=== PATIENT | female | born 1960 | race Caucasian/White ===

== ENCOUNTER → 2017-05-14 | Outpatient (CLI) | payer OTHER ==
[~2017-05-14] MED LIST: AMIT10TA6 PO; AMIT25TA9 PO; ASPI-516 CHEW; ASPI81TA17 PO; ATEN100T PO; GABA300C5 PO; HYDR25TA5 PO; LOSA100T PO; MELO7.5T27 PO; PRAV20TA2 PO; TRAM50TA PO; TURM500C7; ZOLP5TAB3 PO
== END ==
LOC: CPRE 12:52
PROVIDERS: ATTEND Neurological Surgery
DX: Z01.812 Encounter for preprocedural laboratory examination (principal); M43.16 Spondylolisthesis, lumbar region; M48.062 Spinal stenosis, lumbar region with neurogenic claudication
CPT/HCPCS: 87640; 87641

== ENCOUNTER 2017-05-21 06:04 | Inpatient (IN) | payer OTHER ==
--- NOTE | 2017-05-20 23:04 | MH ---
cc: ELSI VALDEZ M.D., ROHIT K. M.D. DATE OF ADMISSION: 05/21/2017 ADMITTING DIAGNOSIS: Lumbar degenerative disk disease. HISTORY OF PRESENT ILLNESS This is a 57-year-old female who presented to us for evaluation of posterior right thigh pain that started in the summer of 2015 and low back pain. She states that she saw her primary care physician and felt that she had piriformis syndrome and recommended exercises. She states that she got worse and switched primary care physician's and the new primary care physician recommended physical therapy. She was referred to physical therapy. She started doing exercises but this exacerbated her pain and her physical therapist recommended that she follow up with her primary care physician, who felt that she had more than just piriformis syndrome. Her primary care physician at the time ordered an MRI to further evaluate her complaints. She was referred to neurosurgery for further evaluation. She has intermittent numbness in the right leg in the same distribution as the pain. She gets cramps at night in her lower extremities. She states that she is starting to have left hip pain and a similar type of pain in the left leg. She has chronic low back pain. She denies any weakness in the lower extremities. She states when she is sitting or laying down the pain is 0/10. When she is more active during the day her pain reaches 7/10. She states her pain is typically progressive and gets worse during the day. PAST MEDICAL HISTORY: 1. Hypertension. 2. Hyperlipidemia. 3. Tonsillectomy in 1956. 4. Uterine surgery in 1996. 5. Left ovary removed in 1997. FAMILY HISTORY: Father is at 74 years old, had a history of diabetes and heart disease. He had a heart attack. Mother at 75 years old, had hypertension. Brother is alive at 61 years old, has hypertension. Sister is alive at 62 years old, has hypertension. SOCIAL HISTORY: She cleans houses. She is . She has one child. She lives alone. She does not smoke and quit in September of 2014. She drinks 2-3 drinks of alcohol per year. CURRENT MEDICATIONS: 1. Tumeric 500 mg daily. 2. Aspirin 81 milligrams p.o. daily. This was placed on hold prior to surgical intervention. 3. Zolpidem 5 milligrams p.o. q hs. 4. Amitriptyline 25 milligrams p.o. q hs. 5. Losartan 100 milligrams p.o. daily 6. Pravastatin 20 milligrams p.o. daily. 7. Gabapentin 300 milligrams p.o. b.i.d. 8. Meloxicam 7.5 milligrams p.o. daily. This was placed on hold prior to surgical intervention. 9. Tramadol 50 milligrams p.o. q8 hours p.r.n. pain 10. Hydrochlorothiazide 25 milligrams p.o. daily. 11. Atenolol 100 milligrams p.o. daily ALLERGIES PENICILLIN. REVIEW OF SYSTEMS Constitutional: She denies any fever or chills. EARS, NOSE, AND THROAT: No pharyngitis, exudate or blood draining from her nose. CARDIOVASCULAR: She denies any chest pain or palpitations. RESPIRATORY: No cough or shortness of breath. GENITOURINARY: No dysuria or hematuria. MUSCULOSKELETAL: Positive for low back pain. SKIN: No rash or pruritus. NEUROLOGIC: No difficulty with speech or memory. GASTROINTESTINAL: No nausea, vomiting, positive for abdominal pain. PSYCHIATRIC: No anxiety or depression symptoms. ENDOCRINE: Positive for polyuria, no polydipsia. HEMATOLOGIC: No bruising or bleeding tendencies. PHYSICAL EXAMINATION: Head: Normocephalic, atraumatic. Neck: Supple. No carotid bruits heard on auscultation. Lungs: Clear to auscultation bilaterally. Heart: Regular rate and rhythm, normal S1-S2. Abdomen: Soft, nontender. Positive bowel sounds. Skin: Reveals no cyanosis or erythema. Musculoskeletal: She has 5/5 strength in lower extremities. She ambulates without any assistive device. Neurologic: She is awake, alert, oriented. Cranial nerves II-XII grossly intact. Speech is fluent. Comprehension is good. DATA REVIEW MRI of the lumbar spine from March 06, 2017 reveals a grade 1/2, L4-L5 spondylolisthesis with disk protrusion and facet hypertrophy with associated significant spinal stenosis. There is also degenerative disk disease to moderate L5-S1 with disk protrusion eccentric to the left side and endplate changes. She has mild L2-L3, L3-L4 central disk protrusion along with disk degeneration. PLAN We have discussed treatment options with the patient which include continued conservative measures with physical therapy and pain management versus surgical intervention. The patient and her daughter are requesting that we proceed with surgical intervention. We have discussed a L4-L5 transforaminal decompression with interbody fusion. We have discussed the procedure using spine models in the office. We have discussed the risks involved with surgery to include but not limited to bleeding, infection, muscle weakness, voice hoarseness, difficulty swallowing, heart attack, stroke, blood clots, non fusion, scar tissue formation among others. The patient states that she understands the procedure as well as the risks involved and she is requesting that we proceed. She is therefore scheduled accordingly. Dictated by: Elfego Washburn PA-C MD QUYEN Raya/LOUISE /10:26 PM /10:47 PM
[~2017-05-21] VITALS: Ht 170.2 cm; Wt 83.0 kg
[~2017-05-21 06:04] MED LIST changes: -AMIT25TA9 PO; -ASPI-516 CHEW
[2017-05-21] MEDS: SODIUM CHLOR 0.9% 1000 ML INJ 1,000 ML IV SCH ×2 (06:45→20:45)
[2017-05-21] MEDS ORDERED: VANCOMYCIN 1000 MG/NS 250 ML ON-CALL IV SCH ×2 (06:45)
[2017-05-21] MEDS ORDERED: METOPROLOL TARTRATE 25 MG TAB PO PRN (07:00)
[2017-05-21] MEDS ORDERED: POVIDONE IODINE 5% (ANTISEPSIS KIT) 4 APPLICATIONS EACH NARE PRN (07:00)
[2017-05-21] MEDS ORDERED: CHLORHEXIDINE GLUCONATE 2 % 1 PACK (2 CLOTHS) TOPICAL PRN (07:00)
[2017-05-21] MEDS ORDERED: SODIUM CHLORID 0.9% 500 ML IV PRN (07:00)
[2017-05-21] MEDS ORDERED: LACTATED RINGER'S 1000 ML IV PRN (07:00)
[2017-05-21] MEDS ORDERED: INSULIN HUMAN REGULAR 1,000 UNITS/10 ML VIAL SQ PRN (07:00)
[2017-05-21] MEDS ORDERED: VANCOMYCIN HCL 1000 MG VIAL ONE ×2 (07:20→07:21)
[2017-05-21] MEDS ORDERED: THROMBIN (TOPICAL) 5,000 UNIT VIAL ONE (07:21)
[2017-05-21] MEDS ORDERED: GELFOAM SIZE 100 ONE (07:21)
[2017-05-21] MEDS ORDERED: BUPIVACAINE/EPINEPHRINE 0.5% PF 30 ML VIAL ONE (07:21)
[2017-05-21] MEDS ORDERED: VANCOMYCIN 1 GM/200 ML INJ 200 ML IV ONE (07:55)
[2017-05-21] MEDS ORDERED: ACETAMINOPHEN 1000 MG/100 ML 100 ML IV ONE (07:56)
[2017-05-21] MEDS ORDERED: APREPITANT 40 MG CAP ONE (07:58)
[2017-05-21] MEDS ORDERED: VANCOMYCIN 1 GM/200 ML PREMIX ON-CALL IV SCH (08:00)
[2017-05-21] MEDS ORDERED: SODIUM CHLORIDE 0.9% FLUSH 10 ML FLUSH IV FLUSH PRN (13:45)
[2017-05-21] MEDS ORDERED: MAGNESIUM SULFATE INJ 2 GM in SODIUM CHLORIDE 0.9% INJ 100 ML IV PRN (13:45)
[2017-05-21] MEDS ORDERED: CALCIUM GLUCONATE INJ 1 GM in SODIUM CHLORIDE 0.9% INJ 100 ML IV PRN (13:45)
[2017-05-21] MEDS ORDERED: LACTULOSE SYRUP 20 GM/30 ML CUP PO PRN (13:45)
[2017-05-21] MEDS ORDERED: MENTHOL LOZENGE BUCCAL PRN (13:45)
[2017-05-21] MEDS ORDERED: POTASSIUM CHLOR 20 MEQ PREMIX 100 ML IV PRN (13:45)
[2017-05-21] MEDS ORDERED: BISACODYL 10 MG SUPP RECTAL PRN (13:45)
[2017-05-21] MEDS ORDERED: CYCLOBENZAPRINE HCL 10 MG TAB PO PRN (14:00)
[2017-05-21] MEDS: BACLOFEN 10 MG TAB PO SCH ×2 (14:00→20:43)
[2017-05-21] MEDS ORDERED: *morphine SULFATE 4 MG/ML PERIprocedure ONLY ONE ×3 (14:06→15:02)
--- NOTE | 2017-05-21 14:06 | PD.OP ---
Rolando Prather MD Operative Report Date of Surgery: May 21, 2017 Preoperative Diagnosis: Intractable low back pain with radiculopathy; L4-5 degenerative disc disease with the isthmic spondylolisthesis along with disc protrusion and facet hypertrophy with spinal and foraminal stenosis Postoperative Diagnosis: Same Procedure: Lumbar L4-5 transforaminal interbody fusion; L4-5 decompressive laminectomy with discectomy and foraminotomy; L4-5 pedicle screw fixation; L4-5 interbody cage placement; microsurgical technique Anesthesia: Gen. endotracheal by Saman castorena Surgeon: Maik Goldberg M.D. Fuel Management Handler(s): Albina Horne Operation and Findings: Following initiation of general endotracheal anesthesia, the patient had a Silva catheter placed along with sequential compression devices. A gram of vancomycin was administered intravenously and she was turned in a prone position on a Theodore frame, on a Vick table, and all pressure points adequately padded. The lumbosacral region was then prepped with Chloraprep and sterilely draped with Ioban along the usual sterile draping. A midline skin incision was then made extending from the L4-L5 level after infiltrating the skin with 0.5% Marcaine with epinephrine solution extending down through the fascia. The muscle fibers were split using avascular fatty plane and detached from the underlying facets, transverse process and lateral portion of lamina on the right side and a self-retaining retractor used for exposure. Intraoperative fluoroscopy was also used for level of confirmation along with microscope magnification for further dissection. There was significant facet and ligamentum flavum hypertrophy noted at the L4-5 levels along with the pars defect and spondylolisthesis. Right L4-5 facet was resected with a drill bit along with the lamina and there was severe foraminal and lateral recess stenosis from hypertrophied ligamentum flavum and facet which were decompressed bilaterally through the unilateral approach. There was significant disc height collapse along with disc protrusion also leading to the foraminal stenosis as well as a disc herniation. Epidural hemostasis was achieved with bipolar cautery and Gelfoam with thrombin. Subsequently entered into the disc space at the L4-5 level with a #15 blade and nilson were used for discectomy. I then placed PEEK cage packed with local autograft bone and more local autograft bone was packed adjacent to the cage in interspace for added interbody fusion. With placement of the cage, I was able to distract the interspace and opened up the foramen further bilaterally. Subsequently in order to facilitate the fusion and provide stabilization, pedicle screw fixation was undertaken using [place] spine screws on entry point at the right L4-5 levels at the junction of the transverse process and facet. Subsequently using AP and lateral fluoroscopy tap and screw placement. The screws were then connected with a beverly and locked in place with caps. The construct appeared very secure at this point. The area was then copiously irrigated with Vancomycin solution and powder. The retractors were removed and the bipolar cautery used for hemostasis. The muscle fascia was then approximated using 2-0 Vicryl interrupted stitches and then 3-0 Vicryl subcuticular stitches also placed in interrupted fashion. The final skin closure was completed with Mastisol and Steri-Strips. A sterile dressing was then applied. The patient then turned in supine position, extubated and taken to recovery room. There were no intraoperative complications. All sponge and needle counts were correct at the end of procedure. Estimated blood loss about 50 ml. Maik Goldberg MD May 21, 2017 14:06
--- NOTE | 2017-05-21 14:18 | RADRPT ---
EXAM DATE/TIME: 05/21/2017 08:50 [facility] COMPARISON: No previous studies available for comparison. INDICATIONS : Post-op L4-L5 posterior lumbar fusion. MEDICAL HISTORY : None. SURGICAL HISTORY : None. ENCOUNTER: Initial ACUITY: 1 day PAIN SCORE: Non-responsive. LOCATION: Lumbar spine. CONCLUSION: Fluoroscopic images during placement of screws and a beverly on the right at L4-5. Intervertebral disc de vice also seen Elfego Yuan MD on May 21, 2017 at 14:14 Board Certified Radiologist. This report was verified electronically.
[2017-05-21] MEDS ORDERED: MIDAZOLAM HCL 2 MG/2 ML VIAL ONE (14:41)
[2017-05-21] MEDS ORDERED: cloNIDine HCL 0.1 MG TAB PO PRN (15:00)
[2017-05-21] MEDS ORDERED: ONDANSETRON HCL 4 MG/2 ML VIAL IV PUSH PRN (15:00)
[2017-05-21] MEDS ORDERED: ACETAMINOPHEN 325 MG TAB PO PRN (15:00)
[2017-05-21] MEDS ORDERED: MAGNESIUM HYDROXIDE SUSP 30 ML CUP PO PRN (15:00)
[2017-05-21] MEDS ORDERED: ALUMINUM/MAGNESIUM/SIMETH 30 ML CUP PO PRN (15:00)
[2017-05-21] MEDS ORDERED: PROMETHAZINE INJ 25 MG/ML VIAL IM PRN (15:00)
[2017-05-21] MEDS ORDERED: MORPHINE SULFATE 4 MG/ML INJ IV PUSH PRN (15:00)
[2017-05-21] MEDS ORDERED: DO NOT ADM ANY ANTICOAGULANT DRUGS PRN (15:00)
[2017-05-21] MEDS: NS + KCL 20 MEQ INJ 1,000 ML IV SCH ×2 (15:38→20:45)
[2017-05-21] MEDS ORDERED: RESP: ALBUTEROL 2.5 MG/3 ML NEB (PRN) NEB (16:00)
[2017-05-21 16:05] LABS: AUTOMATED NEUTROPHIL # 10.6 TH/MM3 (1.8-7.7); HEMATOCRIT 35.9 % (35.0-46.0); HEMOGLOBIN 12.5 GM/DL (11.6-15.3); LYMPH % 8.5 % (9.0-44.0); MEAN CELL VOLUME 86.3 FL (80.0-100.0); MEAN CORPUSCULAR HGB CONC 34.7 % (32.0-36.0); MEAN PLATELET VOLUME 8.4 FL (7.0-11.0); MONO % 1.7 % (0.0-8.0); MONOCYTE # 0.2 TH/MM3 (0-0.9); NEUT % 89.8 % (16.0-70.0); PLATELET COUNT 223 TH/MM3 (150-450); RED BLOOD COUNT 4.16 MIL/MM3 (4.00-5.30); RED CELL DISTRIBUTION WIDTH 13.5 % (11.6-17.2); WHITE BLOOD COUNT 11.8 TH/MM3 (4.0-11.0)
[2017-05-21 16:25] LABS: BICARBONATE 27.8 MEQ/L (21.0-32.0); CALCIUM 8.2 MG/DL (8.5-10.1); CREATININE 0.67 MG/DL (0.50-1.00)
[2017-05-21] MEDS ORDERED: BACITRACIN TOP OINT 15 GM TUBE ONE (17:20)
[2017-05-21 17:45] VITALS: BP 125/74; PULSE 75; RESP 18; TEMP 96.5; O2SAT 97
[2017-05-21] MEDS ORDERED: BACITRACIN TOP OINT 15 GM TUBE TOPICAL PRN (17:45)
[2017-05-21] MEDS: ACETAMINOPHEN/HYDROcodone 325 MG/10 MG TAB PO PRN (18:23)
[2017-05-21 20:14] VITALS: BP 112/56; PULSE 80; RESP 16; TEMP 97.5; O2SAT 95
[2017-05-21] MEDS: AMITRIPTYLINE HCL 10 MG TAB PO SCH (20:43)
[2017-05-21] MEDS: GABAPENTIN 300 MG CAP PO SCH (20:43)
[2017-05-21] MEDS: LOSARTAN 50 MG TAB PO SCH (20:43)
[2017-05-21] MEDS: DOCUSATE SODIUM 50 MG/SENNA 8.6 MG TAB PO SCH (20:44)
[2017-05-21] MEDS: SODIUM CHLORIDE 0.9% FLUSH 10 ML FLUSH IV FLUSH SCH (20:44)
[2017-05-21] MEDS: VANCOMYCIN INJ 1,000 MG in SODIUM CHLOR 0.9% 250 ML INJ 250 ML IV SCH (20:44)
[2017-05-21] MEDS: ZOLPIDEM TARTRATE 5 MG TAB PO PRN (20:47)
[2017-05-21] MEDS ORDERED: SENNOSIDES 8.6 MG TAB PO PRN (21:00)
[2017-05-22] VITALS (7 sets, daily range): BP systolic 93–125; BP diastolic 49–73; PULSE 67–74; RESP 12–18; TEMP 96.9–97.6; O2SAT 94–98
[2017-05-22] MEDS: ACETAMINOPHEN/HYDROcodone 325 MG/10 MG TAB PO PRN ×5 (02:57→22:55)
[2017-05-22] MEDS: NS + KCL 20 MEQ INJ 1,000 ML IV SCH ×2 (02:58→19:37)
[2017-05-22] MEDS: BACLOFEN 10 MG TAB PO SCH (05:57)
[2017-05-22] MEDS: PANTOPRAZOLE SOD 40 MG DELAYED RELEASE TAB PO SCH (08:33)
[2017-05-22] MEDS: ASPIRIN EC 81 MG TABEC PO SCH (08:33)
[2017-05-22] MEDS: PRAVASTATIN SOD 20 MG TAB PO SCH (08:33)
[2017-05-22] MEDS: DOCUSATE SODIUM 50 MG/SENNA 8.6 MG TAB PO SCH ×2 (08:33→21:12)
[2017-05-22] MEDS: ATENOLOL 100 MG TAB PO SCH (08:33)
[2017-05-22] MEDS: GABAPENTIN 300 MG CAP PO SCH ×2 (08:33→21:12)
[2017-05-22] MEDS: VANCOMYCIN INJ 1,000 MG in SODIUM CHLOR 0.9% 250 ML INJ 250 ML IV SCH (08:33)
[2017-05-22] MEDS: HYDROCHLOROTHIAZIDE 25 MG TAB PO SCH (08:33)
[2017-05-22] MEDS: SODIUM CHLORIDE 0.9% FLUSH 10 ML FLUSH IV FLUSH SCH ×2 (08:34→21:00)
--- NOTE | 2017-05-22 09:20 | HHI.NSPN ---
(Elfego Washburn) History Chief Complaint: Incisional pain. (Elfego Washburn) Interval History 05/22/17: Pt s/p lumbar L4-5 transforaminal interbody fusion; L4-5 decompressive laminectomy with discectomy and foraminotomy; L4-5 pedicle screw fixation; L4-5 interbody cage placement on 05/21/17. She complains of incisional pain but controlled with medication. No radiculopathy in LEs. No paresthesias in LEs. Moves LEs with good strength. (Elfego Washburn) Review of Systems General: Negative for: fever, chills, insomnia Respiratory: Negative for: shortness of breath, cough, sputum Cardiovascular: Negative for: chest pain Gastrointestinal: Negative for: nausea, vomitting, diarrhea, constipation ( Elfego Washburn) Exam Results Vital Signs Date Time Temp Pulse Resp B/P (MAP) Pulse Ox O2 Delivery O2 Flow Rate FiO2 05/22/17 07:52 97.1 72 18 125/58 (80) 95 05/21/17 17:45 Nasal Cannula 3 Intake and Output 05/22/17 05/22/17 05/23/17 08:00 16:00 00:00 Intake Total 1300 ml 480 ml Output Total 1500 ml 1000 ml Balance -200 ml -520 ml (Elfego Washburn) Physical Examination General: Pt awake and alert and resting comfortably in bed. Resp: CTA bilaterally Heart: NSR no murmurs Abd: Soft positive bs Skin: No cyanosis or erythema. Bandage changed by RN early this am. Muscle: Moves LEs with good strength 5/5. Neuro: Pt awake and alert. Follows commands well. Speech clear and appropriate. (Elfego Washburn) Lab, Micro, Other Results Last Impressions Lumbar Spine X-Ray 05/21/17 0000 Signed Impressions: Service Date/Time: Sunday, May 21, 2017 08:50 - CONCLUSION: Fluoroscopic images during placement of screws and a beverly on the right at L4-5. Intervertebral disc device also seen Elfego Yuan MD Laboratory Tests Test 05/21/17 15:25 White Blood Count 11.8 TH/MM3 Red Blood Count 4.16 MIL/MM3 Hemoglobin 12.5 GM/DL Hematocrit 35.9 % Mean Corpuscular Volume 86.3 FL Mean Corpuscular Hemoglobin 30.0 PG Mean Corpuscular Hemoglobin Concent 34.7 % Red Cell Distribution Width 13.5 % Platelet Count 223 TH/MM3 Mean Platelet Volume 8.4 FL Neutrophils (%) (Auto) 89.8 % Lymphocytes (%) (Auto) 8.5 % Monocytes (%) (Auto) 1.7 % Eosinophils (%) (Auto) 0.0 % Basophils (%) (Auto) 0.0 % Neutrophils # (Auto) 10.6 TH/MM3 Lymphocytes # (Auto) 1.0 TH/MM3 Monocytes # (Auto) 0.2 TH/MM3 Eosinophils # (Auto) 0.0 TH/MM3 Basophils # (Auto) 0.0 TH/MM3 CBC Comment DIFF FINAL Differential Comment Blood Urea Nitrogen 14 MG/DL Creatinine 0.67 MG/DL Random Glucose 153 MG/DL Calcium Level 8.2 MG/DL Sodium Level 138 MEQ/L Potassium Level 3.6 MEQ/L Chloride Level 101 MEQ/L Carbon Dioxide Level 27.8 MEQ/L Anion Gap 9 MEQ/L Estimat Glomerular Filtration Rate 91 ML/MIN 05/22/17 05/22/17 05/23/17 15:00 23:00 07:00 Intake Total 480 ml Output Total 1000 ml Balance -520 ml Intake Oral 480 ml Output Urine Total 1000 ml (Elfego Washburn) Medical Decision Making Impression and Plan A: 57 y/o FM s/p lumbar L4-5 transforaminal interbody fusion; L4-5 decompressive laminectomy with discectomy and foraminotomy; L4-5 pedicle screw fixation; L4-5 interbody cage placement by Dr. Goldberg on 05/22/17. P: Continue to monitor Continue with rehab efforts. Continue with current care (Elfego Washburn) Attending Statement The exam, history, and the medical decision-making described in the above note were completed with the assistance of the mid-level provider. I reviewed and agree with the findings presented. I attest that I had a [id number] encounter with the patient on the same day, and personally performed and documented my assessment and findings in the medical record. (Maik Goldberg MD) Elfego Washburn May 22, 2017 09:20 Maik Goldberg MD May 22, 2017 13:50
[2017-05-22] MEDS ORDERED: CYCLOBENZAPRINE HCL 10 MG TAB PO ONE (11:00)
[2017-05-22] MEDS: CYCLOBENZAPRINE HCL 10 MG TAB PO SCH ×2 (15:04→22:55)
[2017-05-22] MEDS: LOSARTAN 50 MG TAB PO SCH (21:00)
[2017-05-22] MEDS: ZOLPIDEM TARTRATE 5 MG TAB PO PRN (21:12)
[2017-05-22] MEDS: AMITRIPTYLINE HCL 10 MG TAB PO SCH (21:12)
[2017-05-23] VITALS: BP 109/59; PULSE 72; RESP 14; TEMP 99.2; O2SAT 96
[2017-05-23] MEDS: NS + KCL 20 MEQ INJ 1,000 ML IV SCH (05:37)
[2017-05-23] MEDS: SODIUM CHLOR 0.9% 1000 ML INJ 1,000 ML IV SCH (06:45)
[2017-05-23] MEDS: CYCLOBENZAPRINE HCL 10 MG TAB PO SCH ×3 (07:00→21:00)
[2017-05-23 08:00] VITALS: BP 133/74; PULSE 82; RESP 18; TEMP 98.7; O2SAT 98
[2017-05-23] MEDS: PANTOPRAZOLE SOD 40 MG DELAYED RELEASE TAB PO SCH (08:23)
[2017-05-23] MEDS: HYDROCHLOROTHIAZIDE 25 MG TAB PO SCH (08:23)
[2017-05-23] MEDS: ASPIRIN EC 81 MG TABEC PO SCH (08:23)
[2017-05-23] MEDS: ATENOLOL 100 MG TAB PO SCH (08:23)
[2017-05-23] MEDS: DOCUSATE SODIUM 50 MG/SENNA 8.6 MG TAB PO SCH ×2 (08:23→21:00)
[2017-05-23] MEDS: PRAVASTATIN SOD 20 MG TAB PO SCH (08:23)
[2017-05-23] MEDS: GABAPENTIN 300 MG CAP PO SCH ×2 (08:24→20:59)
[2017-05-23] MEDS: ACETAMINOPHEN/HYDROcodone 325 MG/10 MG TAB PO PRN ×3 (08:24→21:00)
[2017-05-23] MEDS: SODIUM CHLORIDE 0.9% FLUSH 10 ML FLUSH IV FLUSH SCH ×2 (08:38→21:00)
--- NOTE | 2017-05-23 10:23 | HHI.NSPN ---
(Elfego Washburn) History Chief Complaint: Incisional pain. (Elfego Washburn) Interval History 05/22/17: Pt s/p lumbar L4-5 transforaminal interbody fusion; L4-5 decompressive laminectomy with discectomy and foraminotomy; L4-5 pedicle screw fixation; L4-5 interbody cage placement on 05/21/17. She complains of incisional pain but controlled with medication. No radiculopathy in LEs. No paresthesias in LEs. Moves LEs with good strength. 05/23/17: Pt awake and alert. Complains of incisional pain worse with movement. No radiculopathy or paresthesias in LEs. Silva was just removed and pt has not urinated yet. (Elfego Washburn) Review of Systems General: Negative for: fever, chills, insomnia Respiratory: Negative for: shortness of breath, cough, sputum Cardiovascular: Negative for: chest pain Gastrointestinal: Negative for: nausea, vomitting, diarrhea, constipation ( Elfego Washburn) Exam Results Vital Signs Date Time Temp Pulse Resp B/P (MAP) Pulse Ox O2 Delivery O2 Flow Rate FiO2 05/23/17 08:00 98.7 82 18 133/74 (93) 98 05/21/17 17:45 Nasal Cannula 3 Intake and Output 05/23/17 05/23/17 05/24/17 08:00 16:00 00:00 Intake Total 240 ml Output Total 300 ml Balance -60 ml (Elfego Washburn) Physical Examination General: Pt awake and alert and resting comfortably in bed. Resp: CTA bilaterally Heart: NSR no murmurs Abd: Soft positive bs Skin: No cyanosis or erythema. Pt log rolled and incision is clean and dry without any signs of infection or complication. Steri strips in place and new bandage applied. Muscle: Moves LEs with good strength 5/5. Neuro: Pt awake and alert. Follows commands well. Speech clear and appropriate. Sensation intact in LEs. (Elfego Washburn) Lab, Micro, Other Results Last Impressions Lumbar Spine X-Ray 05/21/17 0000 Signed Impressions: Service Date/Time: Sunday, May 21, 2017 08:50 - CONCLUSION: Fluoroscopic images during placement of screws and a beverly on the right at L4-5. Intervertebral disc device also seen Elfego Yuan MD (Elfego Washburn) Medical Decision Making Impression and Plan A: 57 y/o FM s/p lumbar L4-5 transforaminal interbody fusion; L4-5 decompressive laminectomy with discectomy and foraminotomy; L4-5 pedicle screw fixation; L4-5 interbody cage placement by Dr. Goldberg on 05/22/17. P: Continue to monitor Continue with rehab efforts. Continue with current care Anticipate rehab placement 05/24/17 am. (Elfego Washburn) Attending Statement The exam, history, and the medical decision-making described in the above note were completed with the assistance of the mid-level provider. I reviewed and agree with the findings presented. I attest that I had a [id number] encounter with the patient on the same day, and personally performed and documented my assessment and findings in the medical record. (Maik Goldberg MD) Elfego Washburn May 23, 2017 10:23 Maik Goldberg MD May 23, 2017 15:14
[2017-05-23] MEDS ORDERED: CYCL10TA PO (10:31)
[2017-05-23 12:00] VITALS: BP 97/55; PULSE 76; RESP 18; TEMP 97.6; O2SAT 94
[2017-05-23 16:00] VITALS: BP 131/73; PULSE 77; RESP 18; TEMP 97.7; O2SAT 94
[2017-05-23 17:26] VITALS: O2SAT 94
[2017-05-23 20:00] VITALS: BP 138/80; PULSE 80; RESP 20; TEMP 99.2; O2SAT 98
[2017-05-23] MEDS: LOSARTAN 50 MG TAB PO SCH (21:00)
[2017-05-23] MEDS: ZOLPIDEM TARTRATE 5 MG TAB PO PRN (21:00)
[2017-05-23] MEDS: AMITRIPTYLINE HCL 10 MG TAB PO SCH (21:00)
[2017-05-24 04:00] VITALS: BP 104/58; PULSE 82; RESP 20; TEMP 98.6; O2SAT 96
[2017-05-24] MEDS: CYCLOBENZAPRINE HCL 10 MG TAB PO SCH ×2 (05:43→15:47)
[2017-05-24] MEDS: ACETAMINOPHEN/HYDROcodone 325 MG/10 MG TAB PO PRN ×3 (05:43→15:48)
[2017-05-24] MEDS: SODIUM CHLOR 0.9% 1000 ML INJ 1,000 ML IV SCH (06:45)
[2017-05-24 08:00] VITALS: BP 116/72; PULSE 77; RESP 17; TEMP 97.4; O2SAT 97
[2017-05-24] MEDS: PRAVASTATIN SOD 20 MG TAB PO SCH (09:00)
[2017-05-24] MEDS: GABAPENTIN 300 MG CAP PO SCH (10:16)
[2017-05-24] MEDS: PANTOPRAZOLE SOD 40 MG DELAYED RELEASE TAB PO SCH (10:16)
[2017-05-24] MEDS: ATENOLOL 100 MG TAB PO SCH (10:16)
[2017-05-24] MEDS: DOCUSATE SODIUM 50 MG/SENNA 8.6 MG TAB PO SCH (10:16)
[2017-05-24] MEDS: ASPIRIN EC 81 MG TABEC PO SCH (10:16)
[2017-05-24] MEDS: HYDROCHLOROTHIAZIDE 25 MG TAB PO SCH (10:16)
[2017-05-24] MEDS: SODIUM CHLORIDE 0.9% FLUSH 10 ML FLUSH IV FLUSH SCH (10:23)
[2017-05-24 12:00] VITALS: BP 124/83; PULSE 82; RESP 17; TEMP 98.8; O2SAT 95
--- NOTE | 2017-05-24 12:27 | HHI.NSPN ---
(Bertha Torres) Note Status Status: Progress Note (Bertha Torres) Interval History Interval History 05/22/17: Pt s/p lumbar L4-5 transforaminal interbody fusion; L4-5 decompressive laminectomy with discectomy and foraminotomy; L4-5 pedicle screw fixation; L4-5 interbody cage placement on 05/21/17. She complains of incisional pain but controlled with medication. No radiculopathy in LEs. No paresthesias in LEs. Moves LEs with good strength. 05/23/17: Pt awake and alert. Complains of incisional pain worse with movement. No radiculopathy or paresthesias in LEs. Silva was just removed and pt has not urinated yet. 05/24: reports to be doing well, surgical pain controlled, reports no symptoms to LE's, she is ambulating with RW, she feels ready for dc to rehab today. (Bertha Torres) Labs, Micro, & Vital Signs Results Date Time Temp Pulse Resp B/P (MAP) Pulse Ox O2 Delivery O2 Flow Rate FiO2 05/24/17 08:00 97.4 77 17 116/72 (87) 97 05/24/17 04:00 98.6 82 20 104/58 (73) 96 05/23/17 20:00 99.2 80 20 138/80 (99) 98 05/23/17 17:26 94 21 05/23/17 16:00 97.7 77 18 131/73 (92) 94 Constitutional Vital Signs Date Time Temp Pulse Resp B/P (MAP) Pulse Ox O2 Delivery O2 Flow Rate FiO2 05/24/17 08:00 97.4 77 17 116/72 (87) 97 05/24/17 04:00 98.6 82 20 104/58 (73) 96 05/23/17 20:00 99.2 80 20 138/80 (99) 98 05/23/17 17:26 94 21 05/23/17 16:00 97.7 77 18 131/73 (92) 94 (Bertha Torres) Review of Systems Constitutional: DENIES: Fever, Chills Respiratory: DENIES: Hemoptysis, Shortness of breath Cardiovascular: DENIES: Chest pain Neurologic: DENIES: Localized weakness (Bertha Torres) Physical Exam Ms. Addison awake and alert and resting comfortably in bed. Speech is appropriate with accent. Motor: moves all four extremities well and symmetrically Skin: No cyanosis or erythema. Resp: clear, no wheezing (Bertha Torres) Medications Current Medications Current Medications Medications (Trade) Dose Ordered Sig/Oneyda Route PRN Reason Start Time Stop Time Status Last Admin Dose Admin Sodium Chloride 1,000 ml @ 30 mls/hr Q24H IV 05/21/17 06:45 Amitriptyline HCl (Elavil) 10 mg HS PO 05/21/17 21:00 05/23/17 21:00 Aspirin (Ecotrin Ec) 81 mg DAILY PO 05/22/17 09:00 05/24/17 10:16 Atenolol (Tenormin) 100 mg DAILY PO 05/22/17 09:00 05/24/17 10:16 Gabapentin (Neurontin) 300 mg BID PO 05/21/17 21:00 05/24/17 10:16 Hydrochlorothiazide (Hydrodiuril) 25 mg DAILY PO 05/22/17 09:00 05/24/17 10:16 Losartan Potassium (Cozaar) 100 mg HS PO 05/21/17 21:00 05/21/17 20:43 Pravastatin Sodium (Pravachol) 20 mg DAILY PO 05/22/17 09:00 05/23/17 08:23 Zolpidem Tartrate (Ambien) 5 mg HS PRN PO INSOMNIA 05/21/17 21:00 05/23/17 21:00 Sodium Chloride (NS Flush) 2 ml UNSCH PRN IV FLUSH FLUSH AFTER USING IV ACCESS 05/21/17 13:45 Sodium Chloride (NS Flush) 2 ml BID IV FLUSH 05/21/17 21:00 05/24/17 10:23 Al Hydrox/Mg Hydrox/Simethicone (Mag-Al Plus Susp Liq) 30 ml Q6H PRN PO DYSPEPSIA 05/21/17 15:00 Pantoprazole Sodium (Protonix) 40 mg DAILY PO 05/22/17 09:00 05/24/17 10:16 Ondansetron HCl (Zofran Inj) 4 mg Q6H PRN IV PUSH NAUSEA OR VOMITING 05/21/17 15:00 Promethazine HCl (Phenergan Inj) 25 mg Q4H PRN IM NAUSEA OR VOMITING 05/21/17 15:00 Calcium Gluconate 1 gm/Sodium Chloride 110 ml @ 110 mls/hr UNSCH PRN IV SEE LABEL COMMENTS 05/21/17 13:45 Potassium Chloride 100 ml @ 50 mls/hr UNSCH PRN IV POTASSIUM LESS THAN 4 05/21/17 13:45 Magnesium Sulfate 2 gm/Sodium Chloride 104 ml @ 100 mls/hr UNSCH PRN IV MAGNESIUM LESS THAN 2 05/21/17 13:45 Acetaminophen/ Hydrocodone Bitart (Bantam 10-325 Mg) 1 tab Q4H PRN PO PAIN SCALE 1 TO 5 05/21/17 15:00 05/24/17 10:17 Acetaminophen/ Hydrocodone Bitart (Bantam 10-325 Mg) 2 tab Q4H PRN PO PAIN SCALE 6 TO 10 05/21/17 15:00 05/22/17 17:41 Morphine Sulfate (Morphine Inj) 4 mg Q2H PRN IV PUSH breakthrough pain 7 TO 10 05/21/17 15:00 Clonidine (Catapres) 0.1 mg Q6H PRN PO SYS BP GREATER THAN 170 MMHG 05/21/17 15:00 Acetaminophen (Tylenol) 650 mg Q4H PRN PO TEMPERATURE > 101.5 F 05/21/17 15:00 Menthol ([place] Aj) 1 lozenge UNSCH PRN BUCCAL SORE THROAT 05/21/17 13:45 Albuterol Sulfate (Albuterol Neb) 2.5 mg Q4HR NEB PRN NEB WHEEZING 05/21/17 16:00 Senna/Docusate Sodium (Danielle-Colace) 1 tab BID PO 05/21/17 21:00 05/24/17 10:16 Magnesium Hydroxide (Milk Of Magnesia Liq) 30 ml Q12HR PRN PO Mild constipation 05/21/17 15:00 Sennosides (Senokot) 17.2 mg Q12HR PRN PO Moderate constipation 05/21/17 21:00 Bisacodyl (Dulcolax Supp) 10 mg DAILY PRN RECTAL SEVERE CONSITIPATION 05/21/17 13:45 Lactulose (Lactulose Liq) 30 ml DAILY PRN PO SEVERE CONSITIPATION 05/21/17 13:45 Bacitracin (Baciguent Oint) APPLY TO FACIAL ABRASI... UNSCH PRN TOPICAL SEE LABEL COMMENTS 05/21/17 17:45 Cyclobenzaprine HCl (Flexeril) 10 mg Q8HR PO 05/22/17 14:00 05/24/17 05:43 (Bertha Torres) Medical Decision Making MDM Remarks A: 57 y/o FM s/p lumbar L4-5 transforaminal interbody fusion; L4-5 decompressive laminectomy with discectomy and foraminotomy; L4-5 pedicle screw fixation; L4-5 interbody cage placement by Dr. Goldberg on 05/22/17. (Bertha Torres) Plan Plan Remarks doing well, ambulating with RW surgical pain controlled dc to rehab today follow up with Dr. Goldberg as scheduled (Bertha Torres) Attending Statement The exam, history, and the medical decision-making described in the above note were completed with the assistance of the mid-level provider. I reviewed and agree with the findings presented. I attest that I had a [id number] encounter with the patient on the same day, and personally performed and documented my assessment and findings in the medical record. (Jesse Medina MD) Bertha Torres May 24, 2017 12:27 Jesse Medina MD May 24, 2017 12:54
[2017-05-24 16:00] VITALS: BP 121/72; PULSE 79; RESP 17; TEMP 99.3; O2SAT 98
== END 2017-05-24 18:12 | DRG 460 ==
LOC: HSDI 06:04 → EDUNIT# 08:30 → N06A 17:50
PROVIDERS: ADMIT Neurological Surgery; ATTEND Neurological Surgery
PROC: 0SB20ZZ Excision of Lumbar Vertebral Disc, Open Approach (ICD-10-PCS; 2017-05-21)
PROC: 01NB0ZZ Release Lumbar Nerve, Open Approach (ICD-10-PCS; 2017-05-21)
PROC: 0SG00AJ Fusion of Lumbar Vertebral Joint with Interbody Fusion Device, Posterior Approach, Anterior Column, Open Approach (ICD-10-PCS; principal; 2017-05-21 08:31)
DX: M51.16 Intervertebral disc disorders with radiculopathy, lumbar region (principal); I10 Essential (primary) hypertension; M48.061 Spinal stenosis, lumbar region without neurogenic claudication; M43.16 Spondylolisthesis, lumbar region; G89.29 Other chronic pain; E78.5 Hyperlipidemia, unspecified; Z87.891 Personal history of nicotine dependence
CPT/HCPCS: 72100; 76000; 80048; 85025; 86850; 86900; 86901; 94150; C1713; J0131; J2250; J2270; J3010; J3370; J3480; J7050; J7120; J8501